=== PATIENT | female | born 2005 | race Caucasian/White ===

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

== ENCOUNTER 2024-04-20 13:38 | Outpatient (CLI) | payer OTHER, SELFPAY | END 2024-04-20 13:39 | disposition home or self-care (01) | LOC: NFLDREF 04-21 02:33 | PROVIDERS: PCP Family Medicine; Referring Provider Family Medicine; Visit Provider Obstetrics & Gynecology | DX: F64.9 Gender identity disorder, unspecified (principal); Z79.899 Other long term (current) drug therapy; Z13.220 Encounter for screening for lipoid disorders | CPT/HCPCS: 80061; 84403 ==

== ENCOUNTER 2024-11-25 11:50 | Outpatient (CLI) | payer OTHER, SELFPAY ==
--- NOTE | 2024-11-25 12:15 | MR_ITS ---
[facility] [address] [facility] [address] Phone:?[phone] Fax:?[phone] Referring Physician Information: Prakash Alejandra M.D. [id number] [facility] [address] Phone:?[phone] Fax:?[phone] Patient:Telly Raines D.O.B:?2005 Sex:?Female Phone:?[phone] [facility] MRN:?[id number] Exam Date:?11/25/2024 EXAM: MRI of the RIGHT KNEE, without contrast CLINICAL INFORMATION: Female, 19 years old, with right knee pain INDICATION: Evaluate for medial meniscus tear PRIOR SURGERY: None reported. PLAIN FILMS: Radiographs 11/05/2024. COMPARISONS: No prior MRIs available. TECHNICAL INFORMATION: Using a 1.5T MR scanner and a localizing surface coil: sagittals: PD, PDFS coronals: PD, T2FS axials: PD, PDFS SEDATION: None CONTRAST: None FINDINGS: Knee joint: Effusion: Physiologic right knee effusion. Popliteal cyst: None. Loose bodies: None. Subcutaneous and extra-articular soft tissues: Unremarkable. Ligaments: ACL: Intact ACL anteromedial and posterolateral bundles, without sprain or tear. PCL: Intact PCL, without acute or chronic injury. MCL: Intact MCL superficial and deep layers, without injury. LCL: Intact LCL, without injury. Posterolateral corner: No posterolateral corner soft tissue injury. Popliteus, biceps femoris, iliotibial band, popliteofibular ligament and lateral gastrocnemius are intact. Posteromedial corner: No posteromedial corner soft tissue injury. Semimembranosus, pes anserine tendons and posterior oblique ligament are without injury, tendinopathy or bursitis. Extensor mechanism: Patellar tendon: Intact, without tendinopathy. Quadriceps tendon: Intact, without tendinopathy. Retinacula: Medial and lateral retinacula are intact. Fat pads: Diffusely edematous appearance of the quadriceps fat pad. Medial compartment: Medial meniscus: No articular surface, meniscosynovial junction or root tear. No displacement, extrusion or parameniscal cyst. Medial femoral condyle: No chondromalacia or osteochondral abnormality. Medial tibial plateau: No chondromalacia or osteochondral abnormality. Lateral compartment: Lateral meniscus: No articular surface, meniscosynovial junction or root tear. No displacement, extrusion or parameniscal cyst. Lateral femoral condyle: No chondromalacia or osteochondral abnormality. Lateral tibial plateau: No chondromalacia or osteochondral abnormality. Patellofemoral joint: Patella: No chondromalacia or osteochondral abnormality. Trochlea: No chondromalacia or osteochondral abnormality. Proximal tibiofibular joint: Unremarkable, without evidence of ligament sprain injury, joint effusion or adjacent marrow edema. Bones: No stress/occult fractures or other marrow edema/pathology. IMPRESSION: 1. No medial or lateral meniscus tear. 2. Diffusely edematous appearance of the quadriceps fat pad, which may be associated with anterior knee pain. 3. No cruciate or collateral ligament sprain/tear. 4. No osteochondral abnormality. 5. No knee joint effusion. KME Electronically signed on 11/25/2024 6:23:00 PM by Alexandrea Arce M.D.
== END 2024-11-25 11:51 | disposition home or self-care (01) ==
PROVIDERS: PCP Family Medicine; Visit Provider Orthopaedic Surgery
DX: M25.561 Pain in right knee (principal)
CPT/HCPCS: 73721

== ENCOUNTER 2024-12-15 21:02 | Outpatient (CLI) | payer OTHER, SELFPAY ==
--- NOTE | 2024-12-29 12:01 | W.PM.SLEEP ---
Sleep Study Details Details Interpreting Provider: Kevin Date of Sleep Study: 12/15/24 Sleep Study Details: STUDY TYPE:? Hospital-based attended ? BMI:? 29.5 ORDERING PROVIDER:? Marie INDICATION:? Concern for sleep apnea ? SLEEP SUMMARY:? 381.5 minutes total sleep time RESPIRATORY SUMMARY:? AHI 7.4 per rule 1A, 1.3 per CMS guideline Supine AHI 15.1. No supine REM sleep was noted PERIODIC LIMB MOVEMENTS OF SLEEP:? None CARDIAC:? Awake 76, asleep 64. Rare PACs noted IMPRESSION:? Mild obstructive sleep apnea per rule 1A negative study per CMS guideline RECOMMENDATION: Treatment options include CPAP dental appliance and/or airway expansion surgery.
== END 2024-12-15 21:03 | disposition home or self-care (01) ==
LOC: SLEEP 21:03
PROVIDERS: PCP Family Medicine; Visit Provider Family Medicine
DX: G47.33 Obstructive sleep apnea (adult) (pediatric) (principal)
CPT/HCPCS: 95810

== ENCOUNTER 2025-01-21 13:17 | Emergency (ER) | payer OTHER, SELFPAY ==
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
[2025-01-21 13:42] VITALS: BP 123/81; PULSE 16; RESP 20; TEMP 36.9; O2SAT 98
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
== END 2025-01-21 15:34 | disposition home or self-care (01) ==
PROVIDERS: Emergency Provider Emergency Medicine; PCP Family Medicine
DX: S06.0XAA Concussion with loss of consciousness status unknown, initial encounter (principal); V49.50XA Passenger injured in collision with unspecified motor vehicles in traffic accident, initial encounter
CPT/HCPCS: 70450; 99283; 99284